=== PATIENT | male | born 2000 | race Caucasian/White ===

== ENCOUNTER 2021-04-10 14:50 | Emergency (ER) | payer BC ==
[~2021-04-10] VITALS: Ht 180.3 cm; Wt 75.0 kg
[2021-04-10 15:07] VITALS: TEMP 98.5
[2021-04-10 16:03] VITALS: BP 122/80; PULSE 84
== END 2021-04-10 16:04 | disposition home or self-care (01) ==
LOC: COL.ER 14:50
DX: S01.80XA Unspecified open wound of other part of head, initial encounter (principal); V19.9XXA Pedal cyclist (driver) (passenger) injured in unspecified traffic accident, initial encounter